=== PATIENT | male | born 1975 | race Caucasian/White ===

== ENCOUNTER 2017-09-12 04:40 | Emergency (ER) | payer MEDICAID ==
[~2017-09-12] VITALS: Ht 172.7 cm; Wt 88.5 kg
[2017-09-12] MEDS ORDERED: CEFTRIAXONE 250 MG IM ONE (05:30)
[2017-09-12] MEDS ORDERED: AZITHROMYCIN 500 MG TABLET PO ONE (05:30)
[2017-09-12] MEDS ORDERED: CEFTRIAXONE 250 MG ONE (05:30)
[2017-09-12] MEDS ORDERED: KETOROLAC 30 MG/1 ML IM ONE (05:30)
[2017-09-12] MEDS ORDERED: AZITHROMYCIN 250 MG TABLET ONE (05:30)
[2017-09-12] MEDS ORDERED: KETOROLAC 30 MG/1 ML ONE (05:30)
[2017-09-12 05:50] LABS: BASOPHILS # (AUTO) 0.04 x10^3/uL (0-0.1); BASOPHILS % (AUTO) 1 % (0-1); EOSINOPHILS # (AUTO) 0.17 x10^3/uL (0-0.4); EOSINOPHILS % (AUTO) 2 % (1-7); LYMPHOCYTES # (AUTO) 2.34 x10^3/uL (1-3.4); LYMPHOCYTES % (AUTO) 29 % (22-44); MD NO; MEAN CORPUSCULAR HEMOGLOBIN 28.1 pg (27.5-34.5); MEAN CORPUSCULAR HGB CONC 33.4 g/dL (33.2-36.2); MEAN CORPUSCULAR VOLUME 84.3 fL (81-97); MEAN PLATELET VOLUME 8.6 fL (7.4-10.4); MONOCYTES # (AUTO) 0.65 x10^3/uL (0.2-0.8); MONOCYTES % (AUTO) 8 % (2-9); NEUTROPHILS # (AUTO) 4.92 x10^3/uL (1.8-6.8); NEUTROPHILS % (AUTO) 61 % (42-75); PLATELET COUNT 200 x10^3/uL (130-400); RED BLOOD COUNT 4.77 x10^6/uL (4.38-5.82); RED CELL DISTRIBUTION WIDTH 15.6 % (9.4-14.8)
[2017-09-12 06:00] LABS: ALBUMIN 3.3 g/dL (3.4-5.0); ANION GAP 8 mmol/L (5-15); CALCIUM 8.5 mg/dL (8.5-10.1); CHLORIDE 103 mmol/L (98-107); CREATININE 0.89 mg/dL (0.7-1.3)
[2017-09-12 07:14] LABS: MICROSCOPIC INDICATED
[2017-09-12 07:15] LABS: CULTURE INDICATED? YES
[2017-09-12 08:12] VITALS: BP 106/60
== END 2017-09-12 08:15 | disposition home or self-care (01) ==
LOC: ED 08:00
DX: N45.1 Epididymitis (principal); Z88.0 Allergy status to penicillin
CPT/HCPCS: 36415; 76870; 80048; 81001; 82040; 85025; 87086; 96372; 99285; J0696; J1885

== ENCOUNTER 2017-11-17 23:33 | Emergency (ER) | payer MEDICAID ==
[~2017-11-17] VITALS: Ht 172.7 cm; Wt 93.0 kg
[2017-11-17 23:33] VITALS: BP 135/75
[2017-11-18] MEDS ORDERED: CLINDAMYCIN 150 MG/ML, 6ML ONE (00:25)
[2017-11-18] MEDS ORDERED: CLINDAMYCIN 150 MG/ML, 6ML IM ONE (00:30)
== END 2017-11-18 00:42 | disposition home or self-care (01) ==
LOC: ED 23:59
DX: L02.415 Cutaneous abscess of right lower limb (principal); L03.115 Cellulitis of right lower limb; F11.10 Opioid abuse, uncomplicated; F17.200 Nicotine dependence, unspecified, uncomplicated
CPT/HCPCS: 96372

== ENCOUNTER 2017-11-24 02:18 | Inpatient (IN) | payer MEDICAID ==
[~2017-11-24] VITALS: Ht 172.7 cm; Wt 93.0 kg
[2017-11-24 03:42] LABS: ALBUMIN 3.5 g/dL (3.4-5.0); ANION GAP 9 mmol/L (5-15); CALCIUM 8.9 mg/dL (8.5-10.1); CHLORIDE 104 mmol/L (98-107)
[2017-11-24 03:45] LABS: ALANINE AMINOTRANSFERASE 20 U/L (12-78); ALKALINE PHOSPHATASE 96 U/L (45-117); BILIRUBIN,TOTAL 0.4 mg/dL (0.2-1.0); CREATININE 0.89 mg/dL (0.7-1.3); TOTAL PROTEIN 7.9 g/dL (6.4-8.2)
[2017-11-24 03:56] LABS: BASOPHILS # (AUTO) 0.01 x10^3/uL (0-0.1); BASOPHILS % (AUTO) 0 % (0-1); EOSINOPHILS # (AUTO) 0.21 x10^3/uL (0-0.4); EOSINOPHILS % (AUTO) 3 % (1-7); LYMPHOCYTES # (AUTO) 2.26 x10^3/uL (1-3.4); LYMPHOCYTES % (AUTO) 27 % (22-44); MD NO; MEAN CORPUSCULAR HEMOGLOBIN 27.7 pg (27.5-34.5); MEAN CORPUSCULAR HGB CONC 32.8 g/dL (33.2-36.2); MEAN CORPUSCULAR VOLUME 84.4 fL (81-97); MEAN PLATELET VOLUME 8.1 fL (7.4-10.4); MONOCYTES # (AUTO) 0.56 x10^3/uL (0.2-0.8); MONOCYTES % (AUTO) 7 % (2-9); NEUTROPHILS # (AUTO) 5.25 x10^3/uL (1.8-6.8); NEUTROPHILS % (AUTO) 63 % (42-75); PLATELET COUNT 252 x10^3/uL (130-400); RED BLOOD COUNT 4.46 x10^6/uL (4.38-5.82); RED CELL DISTRIBUTION WIDTH 14.4 % (9.4-14.8)
[2017-11-24] MEDS ORDERED: CEFTRIAXONE PMX 1GM/50ML 50 ML IV ONE (04:30)
[2017-11-24] MEDS: SODIUM CHLORIDE 0.9% 1,000 ML IV SCH ×2 (05:16→07:16)
[2017-11-24] MEDS ORDERED: LORazepam 2 MG/ML, 1ML IVPush PRN (05:30)
[2017-11-24] MEDS ORDERED: CEFTRIAXONE PMX 1GM/50ML 50 ML IV SCH (05:30)
[2017-11-24] MEDS ORDERED: ENOXAPARIN 40 MG/0.4 ML SQ SCH (05:30)
[2017-11-24] MEDS ORDERED: ACETAMINOPHEN 325 MG TABLET PO PRN (05:30)
[2017-11-24] MEDS ORDERED: hydrALAzine 20 MG/ML, 1ML IVPush PRN (05:30)
[2017-11-24] MEDS ORDERED: OXYcodone IR 5MG TABLET PO PRN (05:30)
[2017-11-24] MEDS ORDERED: VANCOMYCIN PER PHARMACY MC PRN (05:30)
[2017-11-24 06:37] VITALS: BP 103/63
[2017-11-24] MEDS ORDERED: CEFTRIAXONE PMX 1GM/50ML 50 ML ONE (06:58)
[2017-11-24] MEDS ORDERED: ENOXAPARIN 40 MG/0.4 ML ONE (06:58)
[2017-11-24] MEDS ORDERED: OXYcodone IR 5MG TABLET ONE (06:59)
[2017-11-24] MEDS ORDERED: CLINDAMYCIN (07:21)
[2017-11-24] MEDS ORDERED: PHARMACOKINETIC CONSULTATION MC ONE (09:00)
[2017-11-24] MEDS ORDERED: PHARMACOKINETIC MONITORING MC PRN (09:00)
[2017-11-24] MEDS ORDERED: VANCOMYCIN 1,800 MG in SODIUM CHLORIDE 0.9% 250 ML IV SCH (09:30)
== END 2017-11-24 12:30 | disposition left against medical advice (07) | DRG 603 ==
LOC: ED 03:24 → EDIP 04:37 → 3NE 08:35
PROVIDERS: ADMIT Hospitalist; ATTEND Hospitalist
DX: L03.115 Cellulitis of right lower limb (principal); F11.129 Opioid abuse with intoxication, unspecified; F17.210 Nicotine dependence, cigarettes, uncomplicated; Z87.442 Personal history of urinary calculi
CPT/HCPCS: 36415; 80053; 85025; 96372; 96374; J0696; J1650; J3370; J7030; J7050

== ENCOUNTER 2018-04-17 22:59 | Emergency (ER) | payer MEDICAID, OTHER ==
[~2018-04-17] VITALS: Ht 172.7 cm; Wt 91.5 kg
[~2018-04-17 22:59] MED LIST: CLINDAMYCIN
[2018-04-18] MEDS ORDERED: SODIUM CHLORIDE FLUSH 10ML SYR IVF ONE
[2018-04-18 00:20] LABS: BASOPHILS # (AUTO) 0.04 x10^3/uL (0-0.1); BASOPHILS % (AUTO) 1 % (0-1); EOSINOPHILS # (AUTO) 0.13 x10^3/uL (0-0.4); EOSINOPHILS % (AUTO) 2 % (1-7); LYMPHOCYTES # (AUTO) 2.51 x10^3/uL (1-3.4); LYMPHOCYTES % (AUTO) 33 % (22-44); MD NO; MEAN CORPUSCULAR HEMOGLOBIN 28.2 pg (27.5-34.5); MEAN CORPUSCULAR HGB CONC 33.1 g/dL (33.2-36.2); MEAN CORPUSCULAR VOLUME 85.2 fL (81-97); MEAN PLATELET VOLUME 8.6 fL (7.4-10.4); MONOCYTES % (AUTO) 8 % (2-9); NEUTROPHILS % (AUTO) 57 % (42-75); PLATELET COUNT 247 x10^3/uL (130-400); RED BLOOD COUNT 4.21 x10^6/uL (4.38-5.82); RED CELL DISTRIBUTION WIDTH 14.7 % (9.4-14.8)
[2018-04-18 00:32] LABS: ALANINE AMINOTRANSFERASE 18 U/L (12-78); ALBUMIN 3.1 g/dL (3.4-5.0); ANION GAP 7 mmol/L (5-15); CALCIUM 8.3 mg/dL (8.5-10.1); CHLORIDE 105 mmol/L (98-107); CREATININE 0.82 mg/dL (0.7-1.3)
[2018-04-18 00:36] LABS: ALKALINE PHOSPHATASE 82 U/L (45-117); BILIRUBIN,TOTAL 0.2 mg/dL (0.2-1.0); TOTAL PROTEIN 7.4 g/dL (6.4-8.2); TROPONIN I < 0.015 ng/mL (0.000-0.045)
[2018-04-18] MEDS ORDERED: CLINDAMYCIN PMX 600MG/50ML 50 ML ONE (00:52)
[2018-04-18] MEDS ORDERED: CLINDAMYCIN PMX 300MG/50ML 50 ML IV ONE ×2 (01:00→01:30)
[2018-04-18] MEDS ORDERED: CLINDAMYCIN PMX 600MG/50ML 50 ML IV ONE (01:30)
[2018-04-18 01:55] VITALS: BP 97/51
== END 2018-04-18 02:23 | disposition home or self-care (01) ==
LOC: ED 23:59
DX: L03.113 Cellulitis of right upper limb (principal); L03.115 Cellulitis of right lower limb; R00.2 Palpitations; F11.20 Opioid dependence, uncomplicated; F17.200 Nicotine dependence, unspecified, uncomplicated
CPT/HCPCS: 36415; 71045; 80053; 84484; 85025; 93005; 93970; 96365

== ENCOUNTER 2018-12-16 23:57 | Emergency (ER) | payer MEDICAID ==
[~2018-12-16] VITALS: Ht 172.7 cm; Wt 95.8 kg
[2018-12-17] MEDS ORDERED: CLINDAMYCIN PMX 900MG/50ML 50 ML IV ONE (00:30)
[2018-12-17] MEDS ORDERED: CLINDAMYCIN PMX 900MG/50ML 50 ML ONE (00:50)
[2018-12-17 01:04] LABS: BASOPHILS # (AUTO) 0.04 x10^3/uL (0-0.1); BASOPHILS % (AUTO) 1 % (0-1); EOSINOPHILS # (AUTO) 0.12 x10^3/uL (0-0.4); EOSINOPHILS % (AUTO) 2 % (1-7); LYMPHOCYTES # (AUTO) 2.12 x10^3/uL (1-3.4); LYMPHOCYTES % (AUTO) 32 % (22-44); MD NO; MEAN CORPUSCULAR HEMOGLOBIN 26.3 pg (27.5-34.5); MEAN CORPUSCULAR HGB CONC 31.9 g/dL (33.2-36.2); MEAN CORPUSCULAR VOLUME 82.3 fL (81-97); MEAN PLATELET VOLUME 7.9 fL (7.4-10.4); MONOCYTES % (AUTO) 7 % (2-9); NEUTROPHILS % (AUTO) 58 % (42-75); PLATELET COUNT 249 x10^3/uL (130-400); RED BLOOD COUNT 4.27 x10^6/uL (4.38-5.82); RED CELL DISTRIBUTION WIDTH 16.6 % (9.4-14.8)
[2018-12-17 01:17] LABS: ALANINE AMINOTRANSFERASE 41 U/L (12-78); ANION GAP 6 mmol/L (5-15); CALCIUM 8.6 mg/dL (8.5-10.1); CHLORIDE 104 mmol/L (98-107); CREATININE 0.82 mg/dL (0.7-1.3)
[2018-12-17 01:19] LABS: ALKALINE PHOSPHATASE 145 U/L (45-117); BILIRUBIN,TOTAL 0.2 mg/dL (0.2-1.0); TOTAL PROTEIN 7.7 g/dL (6.4-8.2)
[2018-12-17] MEDS ORDERED: OMNIPAQUE 350 MG/ML, 100ML BOTTLE ONE (02:15)
[2018-12-17 03:47] VITALS: BP 124/69
== END 2018-12-17 03:50 | disposition home or self-care (01) ==
LOC: ED 12-17 02:43
DX: L03.114 Cellulitis of left upper limb (principal); L02.414 Cutaneous abscess of left upper limb; F11.10 Opioid abuse, uncomplicated
CPT/HCPCS: 10061; 36415; 73090; 73201; 80053; 83605; 85025; 87040; 96365; 99284; Q9967

== ENCOUNTER 2021-02-23 08:36 | Emergency (ER) | payer MEDICAID ==
[~2021-02-23] VITALS: Ht 172.7 cm; Wt 90.6 kg
[2021-02-23] MEDS ORDERED: LIDOCAINE-MPF 1%, 5ML INFIL ONE (09:00)
--- NOTE | 2021-02-23 09:42 | NUR ---
day care assistant: Pt ambulatory to room from lobby at this time.
[2021-02-23] MEDS ORDERED: LIDOCAINE-MPF 1%, 2ML ONE (09:54)
--- NOTE | 2021-02-23 11:23 | NUR ---
PT REC'VD DISCHARGE INSTRUCTIONS AND EDUCATION. PT HAD NO FURTHER QUESTIONS. PT ABULATED TO DC AREA, STEADY GAIT.
[2021-02-23 11:25] VITALS: BP 105/62
== END 2021-02-23 11:26 | disposition home or self-care (01) ==
LOC: ED 11:25
DX: L02.414 Cutaneous abscess of left upper limb (principal)
CPT/HCPCS: 10060; 99283